=== PATIENT | female | born 1990 | race Caucasian/White ===

== ENCOUNTER 2016-05-10 13:22 | Emergency (ER) | payer BC ==
[2016-05-10 13:34] VITALS: BP 118/87
--- NOTE | 2016-05-10 14:29 | EDM.PDOC ---
ED HPI GI/ABDOMINAL - General Chief Complaint: Gastrointestinal Problem Stated Complaint: HEMROIDS Time Seen by Provider: 05/10/16 14:01 Source of Information: Reports: Patient History Limitations: Reports: No limitations - History of Present Illness INITIAL COMMENTS - FREE TEXT/NARRATIVE: Patient presents for evaluation treatment of hemorrhoids. Patient is approximately 35 weeks . She states that she's been having severe hemorrhoids for several weeks. She has seen her [facility] provider, Dr. Nathan. He is aware of this and has been following the hemorrhoids. Most recent visit with ob was yesterday. She states that she was referred to a surgeon for further management and care. She reports prior to me entering the room her [facility] office called and she has an appointment with surgery tomorrow. Patient states that the hemorrhoids or not any worse today than previous days she just cannot longer take the pain. She is currently been using Tucks wipes, stool softeners and cream but is not having any relief. She is also taking Tylenol as needed for pain relief. Patient reports that her last bowel movement was approximately 8 days ago. She reports bright red blood on the tissue paper. Patient is a . She is scheduled to be induced on 06-04. Denies any abdominal or pelvic pain. Denies any vaginal bleeding. Baby is active and is healthy. Patient reports that she did have hemorrhoids with her last . - Related Data Allergies/ADRs: Allergies Allergy/AdvReac Type Severity Reaction Status Date / Time venom-honey bee Allergy Airway Verified 05/10/16 13:34 [bee venom (honey bee)] Tightness Home Meds: Home Meds . [No Known Home Meds] 05/10/16 [History] Past Medical History Gastrointestinal History: Reports: Hemorrhoids Genitourinary History: Reports: Renal calculus - Past Surgical History HEENT Surgical History: Reports: LASIK Female Surgical History: Reports: Ureteral stent Social & Family History - Tobacco Use Smoking Status *Q: Former Smoker - Caffeine Use Caffeine Use: Reports: Coffee, Soda - Alcohol Use Days Per Week of Alcohol Use: 0 - Recreational Drug Use Recreational Drug Use: No ED ROS GENERAL - Review of Systems Review Of Systems: See Below GI/Abdominal: Reports: Constipation, Hematochezia, Other (hemorrhoids). Denies : Abdominal pain, Nausea, Vomiting : Reports: no symptoms, other (denies pelvis pain or vaginal bleeding) ED EXAM, GI/ABD - Physical Exam Exam: See Below Exam Limited By: No limitations General Appearance: alert, WD/WN, no apparent distress Respiratory/Chest: no respiratory distress, lungs clear, normal breath sounds Cardiovascular: normal peripheral pulses, regular rate, rhythm GI/Abdominal: normal bowel sounds, other (gravid uterus) Rectal (Female) Exam: Normal Exam, Hemorrhoids (1 large hemorrhoidal tag, 1 large thrombosed hemorrhoid) Neurological: alert, oriented, normal cognition Psychiatric: normal affect, normal mood Skin Exam: Warm, Dry, Normal color Course - Vital Signs Last Recorded V/S: Last Vital Signs Temp 36.4 C 05/10/16 13:31 Pulse 107 H 05/10/16 13:31 Resp 16 05/10/16 13:31 BP 118/87 05/10/16 13:31 Pulse Ox 97 05/10/16 13:31 - Orders/Labs/Meds Meds: Medications Discontinued Medications Generic Name Dose Route Start Last Admin Trade Name Hussain PRN Reason Stop Dose Admin Lidocaine HCl 10 ml 05/10/16 15:09 05/10/16 15:20 Xylocaine 2% Jelly MUCMEM 05/10/16 15:10 10 ml ONETIME ONE Administration - Re-Assessments/Exams Free Text/Narrative Re-Assessment/Exam: 05/10/16 15:29 I called over to Dr. Nathan's office and they confirm that she has an appointment with tomorrow at 11:15 AM. I spoke with nurse practitioner, Katalina Vieyra about options for her constipation. Does not recommend laxatives or enemas. Recommend Colace 2 tabs twice a day, MiraLax and fiber. I discussed this with the patient. We will give some lidocaine jelly for her hemorrhoids here in the ER and she may take the remainder of her home. She is to followup with surgery tomorrow as planned. Discharge instructions as documented. Departure - Departure Time of Disposition: 15:30 Disposition: Home, Self-Care 01 Condition: fair Clinical Impression: Hemorrhoids affecting or puerperium with complication Instructions: Hemorrhoids, [id number] Referrals: Tom Nathan MD [Primary Care Provider] - Forms: ED Department Discharge Additional Instructions: Continue with the topical cream as prescribed by Dr. Nathan. Continue with Sits bath. Appointment with Dr. Duong at [place] tomorrow at 11:15 for further management of hemorrhoids. 2 tabs of colace twice a day and Metamucel for soft, easily passable bowel movements. Drink plenty of fluid. Drink about half you body weight in fluids a day. OTC tylenol as needed for additional pain relief. May use the remainder of lidocaine tonight or tomorrow as needed. Rest. Please return to the ER should your symptoms change or worsen.
[2016-05-10] MEDS ORDERED: Lidocaine 2% Jelly 10 ML Urojet MUCMEM ONE (15:09)
== END 2016-05-10 15:45 | disposition home or self-care (01) ==
LOC: JD.ED 13:22
DX: O22.43 Hemorrhoids in pregnancy, third trimester (principal); Z3A.35 35 weeks gestation of pregnancy; Z87.891 Personal history of nicotine dependence; Z96.0 Presence of urogenital implants; Z91.030 Bee allergy status
CPT/HCPCS: 99283

== ENCOUNTER 2016-06-04 11:57 | Inpatient (IN) | payer BC ==
[2016-06-04] MEDS ORDERED: Ondansetron 4 MG/2 ML SDV IVPUSH PRN ×2 (15:50→16:50)
[2016-06-04] MEDS ORDERED: Sodium Chloride 0.9% 10 ML Syringe FLUSH PRN (15:50)
[2016-06-04] MEDS ORDERED: Nalbuphine 20 MG/1 ML Amp IVPUSH PRN (15:50)
[2016-06-04] MEDS ORDERED: Bupivacaine 0.25% 10 ML SDV ONE (16:00)
[2016-06-04] MEDS ORDERED: Oxytocin/Lactated Ringers 10 UNIT/1,000 ML BAG IV SCH ×2 (16:00)
[2016-06-04] MEDS: Lactated Ringers 1,000 ML IV SCH ×2 (16:22→17:35)
[2016-06-04] MEDS ORDERED: ePHEDrine 50 MG/ML SDV IVPUSH PRN (16:50)
[2016-06-04] MEDS ORDERED: fentaNYL 100 MCG/2 ML SDV IVPUSH PRN (16:50)
[2016-06-04] MEDS ORDERED: Bupivacaine/fentaNYL/NS 100 ML Bag EPIDUR SCH (17:00)
[2016-06-04] MEDS ORDERED: Lidocaine 1% 50 ML MDV INJECT ONE (18:00)
--- NOTE | 2016-06-04 18:42 | PCM.PREANE ---
Preanesthetic Assessment - Anesthesia/Transfusion/Family Hx Anesthesia History: Prior Anesthesia Without Reaction Transfusion History: No Prior Transfusion(s) - Physical Assessment O2 Sat by Pulse Oximetry: 96 Respiratory Rate: 16 Vital Signs: Last Vital Signs Temp 36.3 C 06/04/16 14:23 Pulse 86 06/04/16 14:23 Resp 16 06/04/16 14:23 BP 108/72 06/04/16 14:23 Pulse Ox 96 06/04/16 14:23 Height: 1.55 m Weight: 64.41 kg - Lab Values: Laboratory Last Values WBC 8.45 K/mm3 (3.98-10.04) 06/04/16 16: RBC 3.55 M/mm3 (3.98-5.22) L 06/04/16 16:26 Hgb 10.3 gm/L (11.2-15.7) L 06/04/16 16:26 Hct 31.5 % (34.1-44.9) L 06/04/16 16:26 MCV 88.7 fl (79.4-94.8) 06/04/16 16:26 MCH 29.0 pg (25.6-32.2) 06/04/16 16:26 MCHC 32.7 g/dl (32.2-35.5) 06/04/16 16:26 RDW Std Deviation 43.1 fL (36.4-46.3) 06/04/16 16:26 Plt Count 296 K/mm3 (182-369) 06/04/16 16:26 MPV 8.0 fl (9.4-12.3) L 06/04/16 16:26 Neut % (Auto) 60.9 % (34.0-71.1) 06/04/16 16:26 Lymph % (Auto) 29.5 % (19.3-51.7) 06/04/16 16:26 [place] % (Auto) 8.5 % (4.7-12.5) 06/04/16 16:26 Eos % (Auto) 0.5 (0.7-5.8) L 06/04/16 16:26 Baso % (Auto) 0.2 % (0.1-1.2) 06/04/16 16:26 Neut # (Auto) 5.15 K/mm3 (1.56-6.13) 06/04/16 16:26 Lymph # (Auto) 2.49 K/mm3 (1.18-3.74) 06/04/16 16:26 [place] # (Auto) 0.72 K/mm3 (0.24-0.36) H 06/04/16 16:26 Eos # (Auto) 0.04 K/mm3 (0.04-0.36) 06/04/16 16:26 Baso # (Auto) 0.02 K/mm3 (0.01-0.08) 06/04/16 16:26 - Allergies Allergies/Adverse Reactions: Allergies Allergy/AdvReac Type Severity Reaction Status Date / Time venom-honey bee Allergy Airway Verified 05/10/16 13:34 [bee venom (honey bee)] Tightness PreAnesthesia Questionnaire Gastrointestinal History: Reports: Hemorrhoids Genitourinary History: Reports: Renal calculus [employer] History: Reports: - Past Surgical History HEENT Surgical History: Reports: LASIK, Other (see below) Other HEENT Surgeries/Procedures: 2009 Female Surgical History: Reports: Ureteral stent - SUBSTANCE USE Smoking Status *Q: Former Smoker Days Per Week of Alcohol Use: 0 Recreational Drug Use History: No - HOME MEDS Home Medications: Home Meds . [No Known Home Meds] 05/10/16 [History] - CURRENT (IN HOUSE) MEDS Current Meds: Current Medications Ephedrine Sulfate (Ephedrine Sulfate) 5 mg IVPUSH ASDIRECTED PRN PRN Reason: Hypotension Fentanyl/Bupivacaine HCl (Fentanyl/Bupivacaine/Ns 2 Mcg-0.125% 100 Ml) 100 ml EPIDUR ASDIRECTED EMILY Lactated Ringer's (Ringers, Lactated) 1,000 mls @ 100 mls/hr IV ASDIRECTED EMILY Last Admin: 06/04/16 16:22 Dose: 100 mls/hr Oxytocin/Lactated Ringer's (Pitocin In Lr 10 Units/1,000 Ml) 10 unit in 1,000 mls @ 500 mls/hr IV TITRATE EMILY Oxytocin/Lactated Ringer's (Pitocin In Lr 10 Units/1,000 Ml) 10 unit in 1,000 mls @ 12 mls/hr IV TITRATE EMILY; 2 MUNITS/MIN PRN Reason: Protocol Last Titration: 06/04/16 17:30 Dose: 6 munits/min, 36 mls/hr Nalbuphine HCl (Nubain) 10 mg IVPUSH Q2H PRN PRN Reason: Pain (moderate 4-6) Ondansetron HCl (Zofran) 4 mg IVPUSH Q4H PRN PRN Reason: Nausea/Vomiting Ondansetron HCl (Zofran) 4 mg IVPUSH ONETIME PRN PRN Reason: Nausea/Vomiting Stop: 06/04/16 19:00 Sodium Chloride (Saline Flush) 10 ml FLUSH ASDIRECTED PRN PRN Reason: Keep Vein Open Discontinued Medications Fentanyl (Sublimaze) 50 mcg IVPUSH Q5M PRN PRN Reason: Pain Stop: 06/04/16 17:06 Lidocaine HCl (Xylocaine 1%) 50 ml INJECT ONETIME ONE Stop: 06/04/16 18:01 Preanesthetic Assessment - ANESTHESIA/TRANSFUSION/FAMILY HX Anesthesia/Transfusion History: No Prior Transfusion(s), Prior Anesthesia Type of Anesthesia Reaction: Denies: Allergy, Anesthesia Awareness, Excessive Somnolence, Excessive Nausea/Vomiting, Excessive Itching, Excessive Shivering, Malignant Hyperthermia, Malignant Hyperthermia, Family History, Pseudocholinesterase Deficiency, Pseudocholinesterase Deficiency, Family History of, Urinary Retention, Unknown, Other (see below) Family History of Anesthesia Reaction: No Intubation History: Unknown - REVIEW OF SYSTEMS Constitutional: Reports: no symptoms NEAR [employer]: Reports: no symptoms Respiratory: Reports: no symptoms Cardiovascular: Reports: no symptoms GI: Reports: no symptoms Other: Reports: None (kidney stones) - PHYSICAL ASSESSMENT HR: 86 O2 Sat by Pulse Oximetry: 96 RR: 16 BP: 108/72 Temp: 36.3 C Vital Signs: Last Vital Signs Temp 36.3 C 06/04/16 14:23 Pulse 86 06/04/16 14:23 Resp 16 06/04/16 14:23 BP 108/72 06/04/16 14:23 Pulse Ox 96 06/04/16 14:23 Height: 1.55 m Weight: 64.41 kg NPO Status Date: 06/04/16 NPO Status Time: 12:30 ASA Class: 2 Mental Status: Alert & Oriented x3 Airway Class: Mallampati = 2 Dentition: Reports: Normal Dentition, Caries Thyro-Mental Finger Breadths: 3 Mouth Opening Finger Breadths: 3 ROM/Head Extension: Full Respiratory Status: lungs clear to auscultation bilaterally Cardiovascular Status: regular rate & rhythm, normal S1, S2, no murmur, blood pressure WNL - LAB Values: Laboratory Last Values WBC 8.45 K/mm3 (3.98-10.04) 06/04/16 16:26 RBC 3.55 M/mm3 (3.98-5.22) L 06/04/16 16:26 Hgb 10.3 gm/L (11.2-15.7) L 06/04/16 16:26 Hct 31.5 % (34.1-44.9) L 06/04/16 16:26 MCV 88.7 fl (79.4-94.8) 06/04/16 16:26 MCH 29.0 pg (25.6-32.2) 06/04/16 16:26 MCHC 32.7 g/dl (32.2-35.5) 06/04/16 16:26 RDW Std Deviation 43.1 fL (36.4-46.3) 06/04/16 16:26 Plt Count 296 K/mm3 (182-369) 06/04/16 16:26 MPV 8.0 fl (9.4-12.3) L 06/04/16 16:26 Neut % (Auto) 60.9 % (34.0-71.1) 06/04/16 16:26 Lymph % (Auto) 29.5 % (19.3-51.7) 06/04/16 16:26 [place] % (Auto) 8.5 % (4.7-12.5) 06/04/16 16:26 Eos % (Auto) 0.5 (0.7-5.8) L 06/04/16 16:26 Baso % (Auto) 0.2 % (0.1-1.2) 06/04/16 16:26 Neut # (Auto) 5.15 K/mm3 (1.56-6.13) 06/04/16 16:26 Lymph # (Auto) 2.49 K/mm3 (1.18-3.74) 06/04/16 16:26 [place] # (Auto) 0.72 K/mm3 (0.24-0.36) H 06/04/16 16:26 Eos # (Auto) 0.04 K/mm3 (0.04-0.36) 06/04/16 16:26 Baso # (Auto) 0.02 K/mm3 (0.01-0.08) 06/04/16 16:26 Reviewed and noted. - ALLERGIES Allergies/Adverse Reactions: Allergies Allergy/AdvReac Type Severity Reaction Status Date / Time venom-honey bee Allergy Airway Verified 05/10/16 13:34 [bee venom (honey bee)] Tightness - ANESTHESIA PLAN Preop Beta Moriah: No Anesthesia Type Planned: Epidural - ACKNOWLEDGEMENTS Pt an Appropriate Candidate for the Planned Anesthesia: Yes Alternatives and Risks of Anesthesia Discussed w Pt/Guardian: Yes Pt/Guardian Understands and Agrees with Anesthesia Plan: Yes
--- NOTE | 2016-06-04 19:16 | PCM.LDHP ---
[id number] of Service: 06/04/16 Admit Problem/Dx: Patient Status Order with Admit Dx/Problem 06/04/16 15:50 Patient Status [ADT] Routine Patient Status: Refer to Observation Admission Diagnosis/Problem: Reason for Admit: Induction Nurse Unit Type: Labor and Delivery Admitting Physician: Tom Nathan Attending Physician: Tom Nathan Medicare 96 Hour Certification Statement: This Patient is Admitted for Inpatient Services and is Medically Appropriate and Meets Medical Necessity for Inpatient Admission. I Reasonably Expect the Patient Will Require Inpatient Services That Span a Period of Time Over 2 Midnights. My Rationale for Medically Necessary Inpatient Care Will Be Found in the Admission History & Physical and Progress Notes. I Reasonably Expect the Patient to be Discharged or Transferred Within 96 Hours After Admission to This [facility]. Admission Diagnosis/Problem Admission Diagnosis/Problem 06/04/16 18:46 Intrauterine at 39-2/7 weeks gestation presenting for induction of labor. Source of Information: Patient History Limitations: Reports: No limitations - History of Present Illness Introduction:: History of Present Illness: Zuleima is a 26-year-old 3 para 2-0-0-2 female who presents to labor & delivery for induction of labor. Patient reports good movement and minimal contractions. She denies having pain. NILSON is 06/09/16 based on definite LMP on 09/03/15. Early ultrasound completed on 11/16/15 estimated NILSON of . She was not on control at the time of conception. The patient has received routine care. was complicated by hemorrhoids and constipation, which were treated symptomatically with Proctosol HC 2.5% rectal cream and Colase 100mg, respectively. She also had an abnormal pap result which was positive for LGSIL with HR-HPV. Colposcopy was done and showed normal cervix with exception of HPV on cervix as well as in the vagina. Patient reports lesions have decreased since diagnosis. weight has been measured consistently small throughout . Tdap was given. [employer] History: -0-0-2. The patient had two full-term spontaneous vaginal deliveries, without complication, prior to this . History of menses occurring approximately every 30 days with menarche at age 12. Recent history of HPV, otherwise no history of other STIs. Patient is blood type A positive, antibody negative. Rubella immune, VDRL/RPR nonreactive. HBsAg negative. HIV, chlamydia, and gonorrhea also negative. GBS negative. Patient plans to bottle feed. Medications: - Proctosol HC 2.5% Rectal cream - Colase 100mg, PO, 2 capsules BID Allergies: No known drug allergies; Bee stings - anaphylaxis, shortness of breath Past Medical History: Pertinent for kidney stones Past Surgical History: - Lasix eye surgery - Stent - Dental surgery Family History: - Mother: hypertension, heart disease, depression; history of stillbirth - Father: Unknown. - 2 brothers: alive and well - MGM: alive with dementia - MGF: heart disease Social History: The patient lives in [place] with her and two children. 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 She has smoked 1/2 pack cigarettes per day for approximately three years. Denies alcohol and illicit drug use. Review of Systems: General: No significant malaise, fatigue, weight changes other than symptoms. HEENT: No headaches, blurry vision, dizziness. No rhinorrhea. No sore throat. Cardiovascular: No chest pain or palpitations. Respiratory: No shortness of breath, coughing, or wheezing. GI: Constipation throughout . See HPI. : changes only. Musculoskeletal: Mild, intermittent swelling. No muscular aches or pains. Physical Exam: General: he patient is a well-nourished, pleasant female in increasing amounts of pain, due to contractions. Vitals: BP 108/72. Weight 143lbs on last evaluation on 05/29/16. Weight 142lbs today. heart rate 138 with good variability. Skin: Skin is warm, supple, and without lesions or bruising. Cardiovascular: Regular rate and rhythm. No murmur appreciated. Respiratory: Clear breath sounds bilaterally. Breast exam: Deferred. Abdominal: Gravid uterus with intermittent tightening. Fundal height consistent with full-term . Cervical exam: 2/80%/-2/soft/mid Extremities and Neurological: Grossly within normal limits. - Related Data Allergies/Adverse Reactions: Allergies Allergy/AdvReac Type Severity Reaction Status Date / Time venom-honey bee Allergy Airway Verified 06/04/16 19:40 [bee venom (honey bee)] Tightness Home Medications: Home Meds . [No Known Home Meds] 05/10/16 [History] Past Medical History Gastrointestinal History: Reports: Hemorrhoids Genitourinary History: Reports: Renal calculus [employer] History: Reports: - Past Surgical History HEENT Surgical History: Reports: ALEXSANDRA, Other (see below) Other HEENT Surgeries/Procedures: 2010 Female Surgical History: Reports: Ureteral stent Social & Family History - Family History Family Medical History: Noncontributory - Tobacco Use Smoking Status *Q: Former Smoker Used Tobacco, but Quit: Yes Month Tobacco Last Used: December - Caffeine Use Caffeine Use: Reports: Coffee, Soda - Alcohol Use Days Per Week of Alcohol Use: 0 - Recreational Drug Use Recreational Drug Use: No H&P Review of Systems - Review of Systems: Review Of Systems: See Below L&D Exam - Exam Exam: See Below - Vital Signs Vital Signs: Last Vital Signs Temp 36.3 C 06/04/16 18:42 Pulse 86 06/04/16 18:42 Resp 16 06/04/16 18:42 BP 108/72 06/04/16 18:42 Pulse Ox 96 06/04/16 18:42 Weight: 64.41 kg - Patient Data Lab Results last 24 hrs: Laboratory Results - last 24 hr 06/04/16 Range/Units 16:26 WBC 8.45 (3.98-10.04) K/mm3 RBC 3.55 L (3.98-5.22) M/mm3 Hgb 10.3 L (11.2-15.7) gm/L Hct 31.5 L (34.1-44.9) % MCV 88.7 (79.4-94.8) fl MCH 29.0 (25.6-32.2) pg MCHC 32.7 (32.2-35.5) g/dl RDW Std Deviation 43.1 (36.4-46.3) fL Plt Count 296 (182-369) K/mm3 MPV 8.0 L (9.4-12.3) fl Neut % (Auto) 60.9 (34.0-71.1) % Lymph % (Auto) 29.5 (19.3-51.7) % [place] % (Auto) 8.5 (4.7-12.5) % Eos % (Auto) 0.5 L (0.7-5.8) Baso % (Auto) 0.2 (0.1-1.2) % Neut # (Auto) 5.15 (1.56-6.13) K/mm3 Lymph # (Auto) 2.49 (1.18-3.74) K/mm3 [place] # (Auto) 0.72 H (0.24-0.36) K/mm3 Eos # (Auto) 0.04 (0.04-0.36) K/mm3 Baso # (Auto) 0.02 (0.01-0.08) K/mm3 Result Diagrams: 06/04/16 16:26 Orders Last 24hrs: Active Orders 24 hr Category Date Time Status Patient Status [ADT] Routine ADT 06/04/16 15:50 Active Activity as Tolerated [RC] PFP Care 06/04/16 15:50 Active Communication Order [RC] ASDIRECTED Care 06/04/16 15:50 Active Heart Tones [RC] ASDIRECTED Care 06/04/16 15:50 Active Notify Provider [RC] ASDIRECTED Care 06/04/16 16:50 Active Notify Provider [RC] PFP Care 06/04/16 15:50 Active Notify Provider [RC] PRN Care 06/04/16 15:50 Active Oxygen Therapy [RC] ASDIRECTED Care 06/04/16 16:49 Active Peripheral IV Care [RC] . DIRECTED Care 06/04/16 15:50 Active Pulse Oximetry [RC] ASDIRECTED Care 06/04/16 16:49 Active Vital Signs [RC] PER UNIT ROUTINE Care 06/04/16 15:50 Active Clear Liquid Diet [DIET] Diet 06/04/16 Lunch Active Bupivacaine/fentaNYL/NS [fentaNYL/Bupivacaine/NS 2 MCG- Med 06/04/16 17:00 Active 0.125% 100 ML] 100 ml EPIDUR ASDIRECTED Lactated Ringers [Ringers, Lactated] 1,000 ml Med 06/04/16 16:00 Active IV ASDIRECTED Nalbuphine [Nubain] Med 06/04/16 15:50 Active 10 mg IVPUSH Q2H PRN Ondansetron [Zofran] Med 06/04/16 16:50 Active 4 mg IVPUSH ONETIME PRN Ondansetron [Zofran] Med 06/04/16 15:50 Active 4 mg IVPUSH Q4H PRN Oxytocin/Lactated Ringers [Pitocin in LR 10 Units/1,000 Med 06/04/16 16:00 Active ML] 10 unit in 1,000 ml IV TITRATE Oxytocin/Lactated Ringers [Pitocin in LR 10 Units/1,000 Med 06/04/16 16:00 Active ML] 10 unit in 1,000 ml IV TITRATE Sodium Chloride 0.9% [Saline Flush] Med 06/04/16 15:50 Active 10 ml FLUSH ASDIRECTED PRN ePHEDrine [ePHEDrine Sulfate] Med 06/04/16 16:50 Active 5 mg IVPUSH ASDIRECTED PRN Electronic Heart Tones Ext w TOCO [WOMSER] Oth 06/04/16 15:50 Ordered Routine Electronic Heart Tones Internal [WOMSER] Per Unit Ot 06/04/16 15:50 Ordered Routine Peripheral IV Insertion Adult [OM.PC] Routine Ot 06/04/16 15:50 Ordered Resuscitation Status Routine Resus Stat 06/04/16 15:50 Ordered Medication Orders Ephedrine Sulfate (Ephedrine Sulfate) 5 mg IVPUSH ASDIRECTED PRN PRN Reason: Hypotension Fentanyl/Bupivacaine HCl (Fentanyl/Bupivacaine/Ns 2 Mcg-0.125% 100 Ml) 100 ml EPIDUR ASDIRECTED EMILY Lactated Ringer's (Ringers, Lactated) 1,000 mls @ 100 mls/hr IV ASDIRECTED EMILY Last Admin: 06/04/16 16:22 Dose: 100 mls/hr Oxytocin/Lactated Ringer's (Pitocin In Lr 10 Units/1,000 Ml) 10 unit in 1,000 mls @ 500 mls/hr IV TITRATE EMILY Oxytocin/Lactated Ringer's (Pitocin In Lr 10 Units/1,000 Ml) 10 unit in 1,000 mls @ 12 mls/hr IV TITRATE EMILY; 2 MUNITS/MIN PRN Reason: Protocol Last Titration: 06/04/16 17:30 Dose: 6 munits/min, 36 mls/hr Titration: 06/04/16 16:46 Dose: 4 munits/min, 24 mls/hr Admin: 06/04/16 16:22 Dose: 2 munits/min, 12 mls/hr Nalbuphine HCl (Nubain) 10 mg IVPUSH Q2H PRN PRN Reason: Pain (moderate 4-6) Ondansetron HCl (Zofran) 4 mg IVPUSH Q4H PRN PRN Reason: Nausea/Vomiting Ondansetron HCl (Zofran) 4 mg IVPUSH ONETIME PRN PRN Reason: Nausea/Vomiting Stop: 06/04/16 19:00 Sodium Chloride (Saline Flush) 10 ml FLUSH ASDIRECTED PRN PRN Reason: Keep Vein Open Assessment/Plan Comment:: Assessment: 1. Intrauterine at 39-2/7 weeks gestation presenting for Induction of Labor. 2. Group B Strep negative. 3. History of HPV lesions on vagina and cervix. 4. Plans a natural labor but is open to epidural. 5. Plans to bottle feed. 6. Tdap up-to-date. Plan: 1. IV Pitocin if no significant contractions develop in the next 2-3 hours. 2. Artificial rupture of membranes once patient is settled in room. 3. Epidural if desired. 4. Anticipate normal spontaneous vaginal delivery. <Tom Nathan - Last Filed: 06/05/16 05:59> L&D History of Present Illness - General Date of Service: 06/04/16 Admit Problem/Dx: Admission Diagnosis/Problem Admission Diagnosis/Problem Source of Information: Patient History Limitations: Reports: No limitations H&P Review of Systems - Review of Systems: Review Of Systems: See Below L&D Exam - Exam Exam: See Below - Vital Signs Vital Signs: Last Vital Signs Temp 36.8 C 06/04/16 21:00 Pulse 66 06/04/16 21:00 Resp 15 06/04/16 21:00 BP 122/77 06/04/16 21:00 Pulse Ox 100 06/04/16 21:00 - Patient Data Lab Results last 24 hrs: Laboratory Results - last 24 hr 06/04/16 Range/Units 16:26 WBC 8.45 (3.98-10.04) K/mm3 RBC 3.55 L (3.98-5.22) M/mm3 Hgb 10.3 L (11.2-15.7) gm/L Hct 31.5 L (34.1-44.9) % MCV 88.7 (79.4-94.8) fl MCH 29.0 (25.6-32.2) pg MCHC 32.7 (32.2-35.5) g/dl RDW Std Deviation 43.1 (36.4-46.3) fL Plt Count 296 (182-369) K/mm3 MPV 8.0 L (9.4-12.3) fl Neut % (Auto) 60.9 (34.0-71.1) % Lymph % (Auto) 29.5 (19.3-51.7) % [place] % (Auto) 8.5 (4.7-12.5) % Eos % (Auto) 0.5 L (0.7-5.8) Baso % (Auto) 0.2 (0.1-1.2) % Neut # (Auto) 5.15 (1.56-6.13) K/mm3 Lymph # (Auto) 2.49 (1.18-3.74) K/mm3 [place] # (Auto) 0.72 H (0.24-0.36) K/mm3 Eos # (Auto) 0.04 (0.04-0.36) K/mm3 Baso # (Auto) 0.02 (0.01-0.08) K/mm3 Result Diagrams: 06/04/16 16:26 Problem List Initiated/Reviewed/Updated: Yes Orders Last 24hrs: Active Orders 24 hr Category Date Time Status Activity as Tolerated [RC] PER UNIT ROUTINE Care 06/04/16 21:04 Active Vital Signs [RC] 04,12,20 Care 06/04/16 15:50 Inactive Vital Signs [RC] 04,12,20 Care 06/04/16 21:04 Active Regular Diet [DIET] Diet 06/04/16 Dinner Active CBC W/O DIFF,HEMOGRAM [HEME] Routine Lab 06/05/16 20:56 Ordered Acetaminophen [Tylenol] Med 06/04/16 21:04 Active 650 mg PO Q4H PRN Benzocaine/Menthol [Dermoplast Pain Relief [place]] Med 06/04/16 21:04 Active See Dose Instructions TOP ASDIRECTED PRN Docusate Sodium [Colace] Med 06/04/16 21:04 Active 100 mg PO BID PRN Ibuprofen [Motrin] Med 06/04/16 21:04 Active 600 mg PO Q4H PRN Lanolin [Lansinoh HPA] Med 06/04/16 21:04 Active See Dose Instructions TOP ASDIRECTED PRN Vit with Ca/FA/Iron [ Plus Iron] Med 06/05/16 09:00 Active 1 each PO DAILY Witch Cyndie [Tucks] Med 06/04/16 21:04 Active 1 pad TOP ASDIRECTED PRN Assess Lochia [WOMSER] Per Unit Routine Ot 06/04/16 21:04 Ordered Assess Uterine Involution [WOMSER] Per Unit Routine Oth 06/04/16 21:04 Ordered Breast Pump [WOMSER] Per Unit Routine Oth 06/04/16 21:04 Ordered Heat Therapy [OM.PC] PRN Oth 06/04/16 21:04 Ordered Heat Therapy [OM.PC] PRN Ot 06/05/16 21:04 Ordered Ice Therapy [OM.PC] Per Unit Routine Ot 06/04/16 21:04 Ordered Medication Administration Instruction [OM.PC] Routine Ot 06/04/16 21:04 Ordered Perineal Care [OM.PC] Per Unit Routine Ot 06/04/16 21:04 Ordered Sitz Bath [OM.PC] Per Unit Routine Ot 06/04/16 21:04 Ordered Resuscitation Status Routine Resus Stat 06/04/16 15:50 Ordered Medication Orders Acetaminophen (Tylenol) 650 mg PO Q4H PRN PRN Reason: mild pain or fever Benzocaine/Menthol (Dermoplast Pain Relief [place]) 0 gm TOP ASDIRECTED PRN PRN Reason: Perineal Comfort Measure Last Admin: 06/04/16 21:13 Dose: 56 gm Docusate Sodium (Colace) 100 mg PO BID PRN PRN Reason: Constipation Emollient Ointment (Lansinoh Hpa) 0 gm TOP ASDIRECTED PRN PRN Reason: Sore Nipples Ibuprofen (Motrin) 600 mg PO Q4H PRN PRN Reason: Mild pain or fever Prenat Multivit/[place]/Iron/Folic Ac ( Plus Iron) 1 each PO DAILY EMILY Manuel Agee (Tucks) 1 pad TOP ASDIRECTED PRN PRN Reason: Hemorrhoid pain Last Admin: 06/04/16 21:12 Dose: 100 pad
--- NOTE | 2016-06-04 20:42 | PCM.SN ---
- Free Text/Narrative Note: Zuleima is a 26-year-old 3 now para 3 female who was admitted for induction of labor. She was having mild contractions until artificial rupture of membranes was performed. She rapidly progressed to complete cervical dilation approximately one hour later. She pushed for two contractions and delivered a viable, more, 2780 g (6 pounds 2 ounce) female infant, 18.5 inches in length over an intact perineum in a direct OA position at 1917 hours. Apgars were 8 and 9 at one and five minutes, respectively. The baby was placed on mom's abdomen. The cord was noted to have three vessels. It was clamped x2 and cut by the father. Cord blood was obtained. The placenta delivered intact at 1923 in Chou presentation. It appeared complete, without lacerations. Pitocin was started IV to facilitate uterine tone once the baby was delivered. Estimated blood loss was 100 cc. There was nuchal cord x1, which was snug, and was reduced over the baby's body as the baby delivered. The patient plans to bottle feed.
[2016-06-04] MEDS ORDERED: Acetaminophen 325 MG Tab PO PRN (21:04)
[2016-06-04] MEDS ORDERED: Docusate Sodium 100 MG Cap PO PRN (21:04)
[2016-06-04] MEDS ORDERED: Witch Hazel Medicated Pads 100/Jar TOP PRN (21:04)
[2016-06-04] MEDS ORDERED: Benzocaine/Menthol 20%-0.5% Spray 56 GM Canister TOP PRN (21:04)
[2016-06-04] MEDS ORDERED: Lanolin 100% Cream 7 GM Tube TOP PRN (21:04)
[2016-06-05] MEDS: Ibuprofen 600 MG Tab PO PRN ×3 (06:19→18:31)
[2016-06-05] MEDS ORDERED: Prenatal Multivitamin with Calcium/Folic Acid/Iron Tab PO SCH (09:00)
--- NOTE | 2016-06-05 09:20 | PCM48HPAN ---
Post Anesthesia Note - EVALUATION WITHIN 48HRS OF ANESTHETIC Vital Signs in Normal Range: Yes Patient Participated in Evaluation: Yes Respiratory Function Stable: Yes Airway Patent: Yes Cardiovascular Function Stable: Yes Hydration Status Stable: Yes Pain Control Satisfactory: Yes Nausea and Vomiting Control Satisfactory: Yes Mental Status Recovered: Yes - COMMENTS/OBSERVATIONS Free Text/Narrative:: Pt and baby doing well. denies headache, fever/chills, nausea/vomiting. Reports return of normal strength and sensation in bilateral lower extremities. walking up to restroom and eating/drinking without problems. Pt happy with epidural.
[2016-06-05 12:27] VITALS: BP 110/71
--- NOTE | 2016-06-05 12:51 | PCM.SN ---
- Free Text/Narrative Note: Subjective: Zuleima reports she is doing well today and would like to go home efraín. She is able to eat, drink, urinate, and is up and walking around in her room. Lochia has decreased from yesterday and she is having minimal pain. She is bottle feeding the baby. Objective: Vital signs are stable - no tachycardia, afebrile. Uterus is at the umbilicus. There is minimal swelling in her legs, bilaterally. labs: Hemoglobin 10.1, hematocrit 31.3%, WBCs 10.45. Assessment: 1. day 1. 2. Bottle Feeding. Plan: 1. Discharge this evening, at least 24 hours after delivery and when baby is ready. 2. Follow-up in clinic with Dr. Nathan in 6 weeks time. Call if any concerns or questions.
--- NOTE | 2016-06-05 19:06 | PCM.DCSUM1 ---
Discharge Summary - Hospital Course Free Text/Narrative:: Zuleima is a 26-year-old 3 now para 3 female who was admitted for induction of labor. She was having mild contractions until artificial rupture of membranes was performed. She rapidly progressed to complete cervical dilation approximately one hour later. She pushed for two contractions and delivered a viable, more, 2780 g (6 pounds 2 ounce) female infant, 18.5 inches in length over an intact perineum in a direct OA position at 1917 hours. Apgars were 8 and 9 at one and five minutes, respectively. The baby was placed on mom's abdomen. The cord was noted to have three vessels. It was clamped x2 and cut by the father. Cord blood was obtained. The placenta delivered intact at 1923 in Chou presentation. It appeared complete, without lacerations. Pitocin was started IV to facilitate uterine tone once the baby was delivered. Estimated blood loss was 100 cc. There was nuchal cord x1, which was snug, and was reduced over the baby's body as the baby delivered. The patient plans to bottle feed. Postoperative patient was done well. She is recovered nicely. Her hemoglobin is okay. She wishes to go home. - Discharge Data Discharge Date: 06/05/16 Discharge Disposition: DC/Tfer W/I Hosp To Swing 61 Condition: Good - Patient Instructions Diet: Regular Diet as Tolerated Activity: As Tolerated (No intercourse or tampons until bleeding resolves) Driving: May Drive Today Showering/Bathing: May Shower (May take a bath) Notify Provider of: Fever, Increased Pain, Swelling and Redness, Nausea and/or Vomiting - Discharge Plan Home Medications: Home Meds Ibuprofen [IJD: Ibuprofen] 600 mg PO Q4H PRN #30 tablet 06/05/16 [Rx] Vit with Ca/FA/Iron [ Plus Iron] 1 each PO DAILY tablet [Rx] Patient Handouts: Smoking Cessation, Tips for Success, [id number], Smoking Hazards Referrals: Tom Nathan MD [Physician] - (Return to clinic-Dr. Nathan-6 weeks-[facility] for evaluation and colposcopy.) - Discharge Summary/Plan Comment DC Time >30 min.: No Discharge Summary/Plan Comment: Discharge instructions: 1. Discharge hematocrit 2. Regular, high-fiber, diet. 3. precautions given concern increased pain, bleeding, temperature, signs/ symptoms of DVT/PE. 4. Medications per medication was printed come discuss with him given to the patient verified. 5. Return clinic-Dr. Nathan-6 weeks-[facility] for evaluation and colposcopy. Diagnosis: 39 week intrauterine , delivered Condition: Good - Patient Data Vitals - Most Recent: Last Vital Signs Temp 36.4 C 06/05/16 11:05 Pulse 67 06/05/16 11:05 Resp 16 06/05/16 11:05 BP 110/71 06/05/16 11:05 Pulse Ox 98 06/05/16 11:05 Weight - Most Recent: 64.41 kg I&O - Last 24 hours: Intake & Output 06/05/16 06/05/16 06/05/16 06:59 14:59 22:59 Intake Total 150 Balance 150 Lab Results - Last 24 hrs: Laboratory Results - last 24 hr 06/05/16 Range/Units 06:04 WBC 10.45 H (3.98-10.04) K/mm3 RBC 3.50 L (3.98-5.22) M/mm3 Hgb 10.1 L (11.2-15.7) gm/L Hct 31.3 L (34.1-44.9) % MCV 89.4 (79.4-94.8) fl MCH 28.9 (25.6-32.2) pg MCHC 32.3 (32.2-35.5) g/dl RDW Std Deviation 43.2 (36.4-46.3) fL Plt Count 259 (182-369) K/mm3 MPV 8.2 L (9.4-12.3) fl Med Orders - Current: Current Medications Acetaminophen (Tylenol) 650 mg PO Q4H PRN PRN Reason: mild pain or fever Benzocaine/Menthol (Dermoplast Pain Relief [place]) 0 gm TOP ASDIRECTED PRN PRN Reason: Perineal Comfort Measure Last Admin: 06/04/16 21:13 Dose: 56 gm Docusate Sodium (Colace) 100 mg PO BID PRN PRN Reason: Constipation Last Admin: 06/05/16 11:02 Dose: 100 mg Emollient Ointment (Lansinoh Hpa) 0 gm TOP ASDIRECTED PRN PRN Reason: Sore Nipples Ibuprofen (Motrin) 600 mg PO Q4H PRN PRN Reason: Mild pain or fever Last Admin: 06/05/16 18:31 Dose: 600 mg Prenat Multivit/[place]/Iron/Folic Ac ( Plus Iron) 1 each PO DAILY EMILY Last Admin: 06/05/16 11:02 Dose: 1 each Witch Cyndie (Tucks) 1 pad TOP ASDIRECTED PRN PRN Reason: Hemorrhoid pain Last Admin: 06/04/16 21:12 Dose: 100 pad Discontinued Medications Bupivacaine HCl (Sensorcaine-Mpf 0.25%) 10 ml .ROUTE .STK-MED ONE Stop: 06/04/16 16:01 Ephedrine Sulfate (Ephedrine Sulfate) 5 mg IVPUSH ASDIRECTED PRN PRN Reason: Hypotension Fentanyl (Sublimaze) 50 mcg IVPUSH Q5M PRN PRN Reason: Pain Stop: 06/04/16 17:06 Last Admin: 06/04/16 18:45 Dose: 100 mcg Fentanyl/Bupivacaine HCl (Fentanyl/Bupivacaine/Ns 2 Mcg-0.125% 100 Ml) 100 ml EPIDUR ASDIRECTED EMILY Last Admin: 06/04/16 18:45 Dose: 100 ml Lactated Ringer's (Ringers, Lactated) 1,000 mls @ 100 mls/hr IV ASDIRECTED EMILY Last Admin: 06/04/16 17:35 Dose: 999 mls/hr Oxytocin/Lactated Ringer's (Pitocin In Lr 10 Units/1,000 Ml) 10 unit in 1,000 mls @ 500 mls/hr IV TITRATE EMILY Last Admin: 06/04/16 19:21 Dose: 500 mls/hr Oxytocin/Lactated Ringer's (Pitocin In Lr 10 Units/1,000 Ml) 10 unit in 1,000 mls @ 12 mls/hr IV TITRATE EMILY; 2 MUNITS/MIN PRN Reason: Protocol Last Titration: 06/04/16 17:30 Dose: 6 munits/min, 36 mls/hr Lidocaine HCl (Xylocaine 1%) 50 ml INJECT ONETIME ONE Stop: 06/04/16 18:01 Last Admin: 06/04/16 20:59 Dose: Not Given Nalbuphine HCl (Nubain) 10 mg IVPUSH Q2H PRN PRN Reason: Pain (moderate 4-6) Ondansetron HCl (Zofran) 4 mg IVPUSH Q4H PRN PRN Reason: Nausea/Vomiting Ondansetron HCl (Zofran) 4 mg IVPUSH ONETIME PRN PRN Reason: Nausea/Vomiting Stop: 06/04/16 19:00 Sodium Chloride (Saline Flush) 10 ml FLUSH ASDIRECTED PRN PRN Reason: Keep Vein Open *Q Meaningful Use (DIS) - VTE *Q VTE Criteria *Q: - Stroke *Q Stroke Criteria *Q: - AMI *Q AMI Criteria *Q:
== END 2016-06-05 19:42 | disposition home or self-care (01) | DRG 560 ==
LOC: JD.OB 13:56 → OBSVTOIN 19:17 → JD.OB 19:17
PROVIDERS: ADMIT Obstetrics & Gynecology; ATTEND Obstetrics & Gynecology
PROC: 10E0XZZ Delivery of Products of Conception, External Approach (ICD-10-PCS; principal; 2016-06-04)
PROC: 10907ZC Drainage of Amniotic Fluid, Therapeutic from Products of Conception, Via Natural or Artificial Opening (ICD-10-PCS; 2016-06-04)
PROC: 00HU33Z Insertion of Infusion Device into Spinal Canal, Percutaneous Approach (ICD-10-PCS; 2016-06-04)
PROC: 3E0R3CZ (ICD-10-PCS; 2016-06-04)
DX: O80 Encounter for full-term uncomplicated delivery (principal); Z3A.39 39 weeks gestation of pregnancy; Z37.0 Single live birth; Z87.891 Personal history of nicotine dependence; Z91.030 Bee allergy status
CPT/HCPCS: 01967; 36415; 85025; 85027; A9270-GY; J2590; J3010; J7120

== ENCOUNTER 2016-09-07 07:53 | Day surgery (SDC) | payer BC ==
[~2016-09-07 07:53] MED LIST: Lactated Ringers 1,000 ML IV SCH; Lidocaine 1% 4 ML ONE; Lidocaine 1%/Sod Bicarbonate in NS 8.4% 1 ML Syringe PRN; Midazolam 1 MG/ML 2 ML SDV ONE; Ondansetron 4 MG/2 ML SDV ONE; Propofol 200 MG/20 ML SDV ONE; Sodium Chloride 0.9% 10 ML Syringe FLUSH PRN; ceFAZolin 1 GM Vial ONE; fentaNYL 250 MCG/5 ML SDV ONE
[2016-09-07] MEDS ORDERED: Lidocaine 1% with EPINEPHrine 1:100,000 20 ML MDV ONE (08:05)
[2016-09-07] MEDS ORDERED: Sodium Chloride 0.9% 50 ML SDV ONE (08:05)
--- NOTE | 2016-09-07 08:22 | PCM.PREANE ---
Preanesthetic Assessment - Anesthesia/Transfusion/Family Hx Anesthesia History: Prior Anesthesia Without Reaction Family History of Anesthesia Reaction: No Transfusion History: No Prior Transfusion(s) - Review of Systems General: No Symptoms, Fatigue (3 kids) Pulmonary: No Symptoms Cardiovascular: No Symptoms, Chest Pain (chest feels heavy and she thinks it is because she just quit smoking this week) Gastrointestinal: No symptoms, Other (menstrual cramps this week) Neurological: No Symptoms Other: Reports: None - Physical Assessment NPO Status Date: 09/06/16 NPO Status Time: 22:00 Pulse: 65 O2 Sat by Pulse Oximetry: 99 Respiratory Rate: 16 Blood Pressure: 111/73 Temperature: 97.1 F Height: 5 ft 1 in Weight: 64.41 kg ASA Class: 1 Mental Status: Alert & Oriented x3 Airway Class: Mallampati = 1 Dentition: Reports: Normal Dentition Thyro-Mental Finger Breadths: 3 Mouth Opening Finger Breadths: 3 ROM/Head Extension: Full Lungs: Clear to auscultation, Normal respiratory effort Cardiovascular: Regular Rate, Regular Rhythm - Lab Values: Laboratory Last Values WBC 5.13 K/mm3 (3.98-10.04) 09/06/16 09:12 RBC 4.94 M/mm3 (3.98-5.22) 09/06/16 09:12 Hgb 14.4 gm/L (11.2-15.7) 09/06/16 09:12 Hct 43.1 % (34.1-44.9) 09/06/16 09:12 MCV 87.2 fl (79.4-94.8) 09/06/16 09:12 MCH 29.1 pg (25.6-32.2) 09/06/16 09:12 MCHC 33.4 g/dl (32.2-35.5) 09/06/16 09:12 RDW Std Deviation 44.7 fL (36.4-46.3) 09/06/16 09:12 Plt Count 320 K/mm3 (182-369) 09/06/16 09:12 MPV 8.7 fl (9.4-12.3) L 09/06/16 09:12 Neut % (Auto) 31.6 % (34.0-71.1) L 09/06/16 09:12 Lymph % (Auto) 55.9 % (19.3-51.7) H 09/06/16 09:12 [place] % (Auto) 10.3 % (4.7-12.5) 09/06/16 09:12 Eos % (Auto) 1.2 (0.7-5.8) 09/06/16 09:12 Baso % (Auto) 0.8 % (0.1-1.2) 09/06/16 09:12 Neut # (Auto) 1.62 K/mm3 (1.56-6.13) 09/06/16 09:12 Lymph # (Auto) 2.87 K/mm3 (1.18-3.74) 09/06/16 09:12 [place] # (Auto) 0.53 K/mm3 (0.24-0.36) H 09/06/16 09:12 Eos # (Auto) 0.06 K/mm3 (0.04-0.36) 09/06/16 09:12 Baso # (Auto) 0.04 K/mm3 (0.01-0.08) 09/06/16 09:12 Urine Color Light yellow (Yellow) 09/06/16 09:12 Urine Appearance Clear (Clear) 09/06/16 09:12 Urine pH 7.0 (5.0-8.0) 09/06/16 09:12 Ur Specific [place] 1.015 (1.005-1.030) 09/06/16 09:12 Urine Protein Negative (Negative) 09/06/16 09:12 Urine Glucose (UA) Negative (Negative) 09/06/16 09:12 Urine Ketones Negative (Negative) 09/06/16 09:12 Urine Occult Blood 3+ (Negative) H 09/06/16 09:12 Urine Nitrite Negative (Negative) 09/06/16 09:12 Urine Bilirubin Negative (Negative) 09/06/16 09:12 Urine Urobilinogen 0.2 (0.2-1.0) 09/06/16 09:12 Ur Leukocyte Esterase Negative (Negative) 09/06/16 09:12 Urine HCG, Qual Negative (NEGATIVE) 09/06/16 09:12 - Allergies Allergies/Adverse Reactions: Allergies Allergy/AdvReac Type Severity Reaction Status Date / Time venom-honey bee Allergy Airway Verified 09/06/16 16:30 [bee venom (honey bee)] Tightness - Blood Blood Available: No - Acknowledgements Anesthesia Type Planned: General Anesthesia Pt an Appropriate Candidate for the Planned Anesthesia: Yes Alternatives and Risks of Anesthesia Discussed w Pt/Guardian: Yes Pt/Guardian Understands and Agrees with Anesthesia Plan: Yes PreAnesthesia Questionnaire Cardiovascular History: Reports: None Respiratory History: Reports: None Gastrointestinal History: Reports: Hemorrhoids Genitourinary History: Reports: Renal Calculus 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: , 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) Other OB/BYN History: colposcopy Musculoskeletal History: Reports: None Neurological History: Reports: None Psychiatric History: Reports: None Endocrine/Metabolic History: Reports: None Hematologic History: Reports: None Immunologic History: Reports: None Oncologic (Cancer) History: Reports: None Dermatologic History: Reports: 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) Other Dermatologic History: acne,vesicular rash - Past Surgical History Head Surgeries/Procedures: Reports: None HEENT Surgical History: Reports: LASIK, Oral Surgery, 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) Other HEENT Surgeries/Procedures: 2009 Respiratory Surgical History: Reports: None Female Surgical History: Reports: Ureteral Stent - SUBSTANCE USE Smoking Status *Q: Former Smoker (quit this week) Tobacco Use Within Last Twelve Months: Cigarettes Second Hand Smoke Exposure: Yes Days Per Week of Alcohol Use: 0 (seldom) Recreational Drug Use History: No - HOME MEDS Home Medications: Home Meds medroxyPROGESTERone Acetate [Depo-Provera] 1 dose IM ASDIRECTED 09/06/16 [ History] - CURRENT (IN HOUSE) MEDS Current Meds: Current Medications Lactated Ringer's (Ringers, Lactated) 1,000 mls @ 125 mls/hr IV ASDIRECTED EMILY Stop: 09/07/16 23:00 Lidocaine/Sodium Bicarbonate (Buffered Lidocaine 1% In Ns 8.4%) 0.25 ml .XX ONETIME PRN PRN Reason: Prior to IV Start Stop: 09/07/16 18:00 Sodium Chloride (Saline Flush) 10 ml FLUSH ASDIRECTED PRN PRN Reason: Keep Vein Open Stop: 09/07/16 18:00 Discontinued Medications Cefazolin Sodium (Ancef) Confirm Administered Dose 2 gm .ROUTE .STK-MED ONE Stop: 09/07/16 07:27 Fentanyl (Sublimaze) Confirm Administered Dose 250 mcg .ROUTE .STK-MED ONE Stop: 09/07/16 07:16 Lidocaine HCl (Xylocaine-Mpf 1%) Confirm Administered Dose 4 mls @ as directed .ROUTE .STK-MED ONE Stop: 09/07/16 07:15 Midazolam HCl (Versed 1 Mg/Ml) Confirm Administered Dose 2 mg .ROUTE .STK-MED ONE Stop: 09/07/16 07:16 Ondansetron HCl (Zofran) Confirm Administered Dose 4 mg .ROUTE .STK-MED ONE Stop: 09/07/16 07:15 Propofol (Diprivan 20 Ml) Confirm Administered Dose 200 mg .ROUTE .STK-MED ONE Stop: 09/07/16 07:15
[2016-09-07] MEDS ORDERED: Ondansetron 4 MG/2 ML SDV IVPUSH PRN ×2 (08:44→09:02)
[2016-09-07] MEDS ORDERED: fentaNYL 100 MCG/2 ML SDV IVPUSH PRN (08:44)
[2016-09-07] MEDS ORDERED: Ketorolac 30 MG/ML SDV ONE (08:54)
[2016-09-07] MEDS ORDERED: Dexamethasone 4 MG/ML SDV ONE (08:54)
[2016-09-07] MEDS ORDERED: Acetaminophen/HYDROcodone 325-5 MG Tab PO PRN (09:02)
[2016-09-07] MEDS ORDERED: ePHEDrine/Normal Saline 25 MG/5 ML Syringe ONE (09:02)
--- NOTE | 2016-09-07 09:08 | PCM.OPNOTE ---
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 Cervical cone biopsy-suture at 12 o'clock position 2. Endocervical curettings from above cone site. Fluid Replacement, Intraop: 800 EBL in mLs: 10 Complications: None Condition: Good Free Text/Narrative:: Surgeon duration: 14 minutes Palpitations: None Procedure: The patient is taken to the operating room and placed in supine position on the operating table. She was administered Ancef 2 g IV preop for infection prophylaxis and had sequential compression stockings in place for DVT prophylaxis. General LMA anesthesia was administered. After anesthesia patient was placed in a dorsal lithotomy position and prepped externally for this procedure. Internal prep was done with Lugol solution. A weighted speculum was placed in the vagina. The cervix was visualized and a stay suture was placed at the 3:00 and 9 o'clock position using #1 Vicryl suture. The Lugol solution was applied and the ectocervix appeared entirely normal. The cervix was infiltrated with lidocaine quarter percent with epinephrine-10 mL total. Cold knife cone biopsy was then performed. The specimen was tagged at 12 o'clock position with a piece of suture. Endocervical curettage was done above the cone site and sent as specimen #2. The base the cone was then cauterized. Hemostasis was confirmed at the end of procedure. The stay suture tails were cut and the speculum was removed. Sponge instrument needle counts are correct at the end of the procedure. She was returned to supine position and awakened from general anesthesia. She tolerated the procedure well left the operating room in good condition.
[2016-09-07] MEDS ORDERED: Acetaminophen/oxyCODONE 325-5 MG Tab PO ONE (09:21)
--- NOTE | 2016-09-07 09:21 | PCM.POSTAN ---
POST ANESTHESIA ASSESSMENT - MENTAL STATUS Mental Status: alert, oriented - VITAL SIGNS Pulse Rate: 100 SaO2: 100 Resp Rate: 14 Blood Pressure: 125/70 Temperature: 99.5 F - RESPIRATORY Respiratory Status: respiratory rate WNL, airway patent, O2 saturation stable, supplemental oxygen - CARDIOVASCULAR CV Status: pulse rate WNL, blood pressure stable - GASTROINTESTINAL GI Status: no symptoms - PAIN Pain Score: 4 (burning discomfort- medicated with fent) - POST OP HYDRATION Hydration Status: adequate & stable
[2016-09-07] MEDS ORDERED: Lactated Ringers 1,000 ML ONE (09:36)
[2016-09-07 10:51] VITALS: BP 117/76
== END 2016-09-07 10:35 | disposition home or self-care (01) ==
LOC: JD.SDS 07:53
PROVIDERS: ATTEND Obstetrics & Gynecology
PROC: 0UBC7ZX Excision of Cervix, Via Natural or Artificial Opening, Diagnostic (ICD-10-PCS; principal; 2016-09-07)
DX: N72 Inflammatory disease of cervix uteri (principal); N87.9 Dysplasia of cervix uteri, unspecified; Z91.030 Bee allergy status; Z98.890 Other specified postprocedural states; Z87.891 Personal history of nicotine dependence; Z87.442 Personal history of urinary calculi
CPT/HCPCS: 36415; 57520; 81003; 81025; 85025; 88305; 88307; J0690; J1100; J1885; J2250; J2405; J3010; J7050; J7120; 00940; J2704

== ENCOUNTER 2018-05-19 05:24 | Emergency (ER) | payer BC, OTHER ==
--- NOTE | 2018-05-19 05:33 | EDM.PDOC ---
ED HPI GENERAL MEDICAL PROBLEM - General Chief Complaint: Respiratory Problem Stated Complaint: POSSIBLE SINIUS INFECTION PAIN AND FEVER Time Seen by Provider: 05/19/18 05:33 - History of Present Illness INITIAL COMMENTS - FREE TEXT/NARRATIVE: 28-year-old female presents emergency room with sinus pressure and congestion. This started on Saturday. She's had fevers 3 lots of sinus pressure it does not seem to favor one side or the other she had ear pain initially but this seems to resolve she's got a fair amount of nasal congestion. She's got a mild cough significant body aches all over. She does not have any nausea vomiting diarrhea. Her past medical history is unremarkable. She has tried Tylenol Aleve Motrin with no success. 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 Musculoskeletal History: Reports: None Neurological History: Reports: None Psychiatric History: Reports: None Endocrine/Metabolic History: Reports: None Hematologic History: Reports: None Immunologic History: Reports: None Oncologic (Cancer) History: Reports: None Dermatologic History: Reports: 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) Other Dermatologic History: acne,vesicular rash - Past Surgical History Head Surgeries/Procedures: Reports: None HEENT Surgical History: Reports: LASIK, Oral Surgery, 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) Other HEENT Surgeries/Procedures: 2009 Respiratory Surgical History: Reports: None Female Surgical History: Reports: Ureteral Stent Social & Family History - Family History Family Medical History: Noncontributory - Caffeine Use Caffeine Use: Reports: Coffee ED ROS GENERAL - Review of Systems Review Of Systems: See Below Constitutional: Reports: Fever, Chills HEENT: Reports: Ear Pain, Sinus Problem Respiratory: Reports: Cough. Denies: Shortness of Breath, Wheezing, Pleuritic Chest Pain, Sputum Cardiovascular: Reports: No Symptoms GI/Abdominal: Reports: No Symptoms : Reports: No Symptoms Musculoskeletal: Reports: Other (Achy all over) Skin: Reports: No Symptoms Neurological: Reports: No Symptoms Psychiatric: Reports: No Symptoms ED EXAM, GENERAL - Physical Exam Exam: See Below Exam Limited By: No Limitations General Appearance: Alert, No Apparent Distress Eye Exam: Bilateral Eye: EOMI, Normal Inspection, PERRL Ears: Normal External Exam, Normal Canal, Hearing Grossly Normal, Normal TMs, Other (Fair amount of cerumen in both canals) Nose: Normal Inspection, Normal Mucosa, No Blood, Other (Maxillary sinuses are both tender with percussion frontal sinuses normal) Throat/Mouth: Normal Inspection, Normal Lips, Normal Teeth, Normal Gums, Normal Oropharynx, Normal Voice, No Airway Compromise Head: Atraumatic, Normocephalic Neck: Normal Inspection, Supple, Non-Tender, Full Range of Motion Respiratory/Chest: Lungs Clear, Normal Breath Sounds, No Accessory Muscle Use Cardiovascular: Normal Peripheral Pulses, Regular Rate, Rhythm, No Edema, No Gallop GI/Abdominal: Normal Bowel Sounds, Soft, Non-Tender Skin Exam: Warm, Dry, Intact Course - Vital Signs Last Recorded V/S: Last Vital Signs Temp 38.7 C H 05/19/18 05:31 Pulse 87 05/19/18 05:31 Resp 16 05/19/18 05:31 BP 113/87 05/19/18 05:31 Pulse Ox 98 05/19/18 05:31 - Orders/Labs/Meds Orders: Active Orders 24 hr Category Date Time Status INFLUENZA A+B AG SCREEN [RM] Stat Lab 05/19/18 05:46 Received - Re-Assessments/Exams Free Text/Narrative Re-Assessment/Exam: 05/19/18 06:37 Influenza A is positive we'll treat accordingly Departure - Departure Time of Disposition: 06:38 Disposition: Home, Self-Care 01 Clinical Impression: Influenza A - Discharge Information Prescriptions: Oseltamivir [Tamiflu] 75 mg PO BID #10 cap Referrals: PCP,None [Primary Care Provider] - Forms: ED Department Discharge Additional Instructions: Return to emergency room if any questions problems worsening symptoms. Take the Tamiflu as directed one twice daily for 5 days. Tylenol or Motrin for aches and pains and fevers. - My Orders Last 24 Hours: My Active Orders 05/19/18 05:46 INFLUENZA A+B AG SCREEN [RM] Stat - Assessment/Plan Last 24 Hours: My Active Orders 05/19/18 05:46 INFLUENZA A+B AG SCREEN [RM] Stat
[2018-05-19 05:34] VITALS: BP 113/87
== END 2018-05-19 06:47 | disposition home or self-care (01) ==
LOC: JD.ED 05:24
DX: J10.1 Influenza due to other identified influenza virus with other respiratory manifestations (principal); Z91.030 Bee allergy status
CPT/HCPCS: 87804; 99283

== ENCOUNTER 2018-11-04 06:30 | Day surgery (SDC) | payer SELFPAY ==
[~2018-11-04 06:30] MED LIST changes: -Lactated Ringers 1,000 ML IV SCH; -Lidocaine 1% 4 ML ONE; +Lidocaine 1%/Sod Bicarbonate in NS 8.4% 1 ML Syringe IDERM PRN; -Lidocaine 1%/Sod Bicarbonate in NS 8.4% 1 ML Syringe PRN; -Midazolam 1 MG/ML 2 ML SDV ONE; -Ondansetron 4 MG/2 ML SDV ONE; -Propofol 200 MG/20 ML SDV ONE; -ceFAZolin 1 GM Vial ONE; -fentaNYL 250 MCG/5 ML SDV ONE
[2018-11-04] MEDS ORDERED: ceFAZolin 1 GM Vial ONE (07:00)
[2018-11-04] MEDS ORDERED: Lactated Ringers 1,000 ML ONE (07:00)
[2018-11-04] MEDS ORDERED: fentaNYL 250 MCG/5 ML SDV ONE (07:00)
[2018-11-04] MEDS ORDERED: Rocuronium 50 MG/5 ML Vial ONE (07:00)
[2018-11-04] MEDS ORDERED: Propofol 200 MG/20 ML SDV ONE (07:00)
[2018-11-04] MEDS ORDERED: Ketorolac 30 MG/ML SDV ONE (07:00)
[2018-11-04] MEDS ORDERED: Ondansetron 4 MG/2 ML SDV ONE (07:00)
[2018-11-04] MEDS ORDERED: Dexamethasone 4 MG/ML 5 ML MDV ONE (07:00)
[2018-11-04] MEDS ORDERED: Midazolam 1 MG/ML 2 ML SDV ONE (07:00)
[2018-11-04] MEDS: Lactated Ringers 1,000 ML IV SCH ×2 (07:12→12:45)
[2018-11-04] MEDS ORDERED: Lidocaine 1% with EPINEPHrine 1:100,000 20 ML MDV ONE (07:22)
--- NOTE | 2018-11-04 07:22 | PCM.PREANE ---
Preanesthetic Assessment - Anesthesia/Transfusion/Family Hx Anesthesia History: Prior Anesthesia Without Reaction Family History of Anesthesia Reaction: No Transfusion History: No Prior Transfusion(s) - Review of Systems General: No Symptoms, Other (hx of HPV) Pulmonary: No Symptoms, Other (hx of smoking, vapes on occasion) Cardiovascular: No Symptoms Gastrointestinal: No Symptoms Neurological: No Symptoms - Physical Assessment NPO Status Date: 11/03/18 NPO Status Time: 20:30 Weight: 48.2 kg ASA Class: 1 Mental Status: Alert & Oriented x3 Airway Class: Mallampati = 2 Dentition: Reports: Normal Dentition Thyro-Mental Finger Breadths: 3 Mouth Opening Finger Breadths: 3 ROM/Head Extension: Full Lungs: Clear to Auscultation, Normal Respiratory Effort Cardiovascular: Regular Rate, Regular Rhythm - Lab Values: Laboratory Last Values WBC 4.98 K/mm3 (3.98-10.04) 10/30/18 08:15 RBC 4.82 M/mm3 (3.98-5.22) 10/30/18 08:15 Hgb 14.3 gm/L (11.2-15.7) 10/30/18 08:15 Hct 43.9 % (34.1-44.9) 10/30/18 08:15 MCV 91.1 fl (79.4-94.8) D 10/30/18 08:15 MCH 29.7 pg (25.6-32.2) 10/30/18 08:15 MCHC 32.6 g/dl (32.2-35.5) 10/30/18 08:15 RDW Std Deviation 43.4 fL (36.4-46.3) 10/30/18 08:15 Plt Count 330 K/mm3 (182-369) 10/30/18 08:15 MPV 9.0 fl (9.4-12.3) L 10/30/18 08:15 Neut % (Auto) 42.8 % (34.0-71.1) 10/30/18 08:15 Lymph % (Auto) 45.8 % (19.3-51.7) 10/30/18 08:15 [place] % (Auto) 8.8 % (4.7-12.5) 10/30/18 08:15 Eos % (Auto) 1.8 (0.7-5.8) 10/30/18 08:15 Baso % (Auto) 0.8 % (0.1-1.2) 10/30/18 08:15 Neut # (Auto) 2.13 K/mm3 (1.56-6.13) 10/30/18 08:15 Lymph # (Auto) 2.28 K/mm3 (1.18-3.74) 10/30/18 08:15 [place] # (Auto) 0.44 K/mm3 (0.24-0.36) H 10/30/18 08:15 Eos # (Auto) 0.09 K/mm3 (0.04-0.36) 10/30/18 08:15 Baso # (Auto) 0.04 K/mm3 (0.01-0.08) 10/30/18 08:15 Creatinine 0.9 mg/dL (0.55-1.02) 10/30/18 08:15 Est Cr Clr Drug Dosing TNP 10/30/18 08:15 Estimated GFR (MDRD) > 60 mL/min (>60) 10/30/18 08:15 Urine Color Yellow (Yellow) 10/30/18 08:15 Urine Appearance Slt cloudy (Clear) H 10/30/18 08:15 Urine pH 6.0 (5.0-8.0) 10/30/18 08:15 Ur Specific [place] > or = 1.030 (1.005-1.030) 10/30/18 08:15 Urine Protein Negative (Negative) 10/30/18 08:15 Urine Glucose (UA) Negative (Negative) 10/30/18 08:15 Urine Ketones Negative (Negative) 10/30/18 08:15 Urine Occult Blood 3+ (Negative) H 10/30/18 08:15 Urine Nitrite Negative (Negative) 10/30/18 08:15 Urine Bilirubin Negative (Negative) 10/30/18 08:15 Urine Urobilinogen 0.2 (0.2-1.0) 10/30/18 08:15 Ur Leukocyte Esterase Negative (Negative) 10/30/18 08:15 Urine RBC 30-40 /hpf (0-5) H 10/30/18 08:15 Urine WBC 0-5 /hpf (0-5) 10/30/18 08:15 Ur Squamous Epith Cells 0-5 /hpf (0-5) 10/30/18 08:15 Urine Bacteria Few /hpf (FEW) 10/30/18 08:15 Urine Mucus Not seen /hpf (FEW) 10/30/18 08:15 Urine HCG, Qual Negative (NEGATIVE) 11/04/18 06:56 Blood Type A POSITIVE 10/30/18 08:15 Gel Antibody Screen Negative 10/30/18 08:15 - Allergies Allergies/Adverse Reactions: Allergies Allergy/AdvReac Type Severity Reaction Status Date / Time venom-honey bee Allergy Airway Verified 11/03/18 11:33 [bee venom (honey bee)] Tightness - Blood Blood Available: No Product(s) Available: None - Anesthesia Plan Pre-Op Medication Ordered: None - Acknowledgements Anesthesia Type Planned: General Anesthesia Pt an Appropriate Candidate for the Planned Anesthesia: Yes Alternatives and Risks of Anesthesia Discussed w Pt/Guardian: Yes Pt/Guardian Understands and Agrees with Anesthesia Plan: Yes PreAnesthesia Questionnaire Cardiovascular History: Reports: None Respiratory History: Reports: None Gastrointestinal History: Reports: Hemorrhoids Genitourinary History: Reports: Renal Calculus 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: , 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) Other OB/BYN History: irregular menses, menorrhagia, , HPV, CINI, cervical conizaiton Musculoskeletal History: Reports: None Neurological History: Reports: None Psychiatric History: Reports: None Endocrine/Metabolic History: Reports: None Hematologic History: Reports: None Immunologic History: Reports: None Oncologic (Cancer) History: Reports: None Dermatologic History: Reports: 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) Other Dermatologic History: acne,vesicular rash - Past Surgical History Head Surgeries/Procedures: Reports: None HEENT Surgical History: Reports: LASIK, Oral Surgery, 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) Other HEENT Surgeries/Procedures: 2009 Cardiovascular Surgical History: Reports: None Respiratory Surgical History: Reports: None GI Surgical History: Reports: None Female Surgical History: Reports: Ureteral Stent Endocrine Surgical History: Reports: None Neurological Surgical History: Reports: None Musculoskeletal Surgical History: Reports: None Oncologic Surgical History: Reports: None - SUBSTANCE USE Smoking Status *Q: Current Some Day Smoker Tobacco Use Within Last Twelve Months: 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) Other Tobacco Use Within Last Twelve Months: vapes occassionally Recreational Drug Use History: No - HOME MEDS Home Medications: Home Meds . [No Known Home Meds] 11/03/18 [History] - CURRENT (IN HOUSE) MEDS Current Meds: Current Medications Lactated Ringer's (Ringers, Lactated) 1,000 mls @ 125 mls/hr IV ASDIRECTED EMILY Stop: 11/04/18 23:00 Lidocaine/Sodium Bicarbonate (Buffered Lidocaine 1% In Ns 8.4%) 0.25 ml IDERM ONETIME PRN PRN Reason: Prior to IV Start Stop: 11/04/18 18:00 Sodium Chloride (Saline Flush) 10 ml FLUSH ASDIRECTED PRN PRN Reason: Keep Vein Open Stop: 11/04/18 18:00 Discontinued Medications Cefazolin Sodium (Ancef) Confirm Administered Dose 2 gm .ROUTE .STK-MED ONE Stop: 11/04/18 07:01 Dexamethasone (Dexamethasone) Confirm Administered Dose 20 mg .ROUTE .STK-MED ONE Stop: 11/04/18 07:01 Fentanyl (Sublimaze) Confirm Administered Dose 250 mcg .ROUTE .STK-MED ONE Stop: 11/04/18 07:01 Lactated Ringer's (Ringers, Lactated) Confirm Administered Dose 1,000 mls @ as directed .ROUTE .STK-MED ONE Stop: 11/04/18 07:01 Ketorolac Tromethamine (Toradol) Confirm Administered Dose 30 mg .ROUTE .STK- MED ONE Stop: 11/04/18 07:01 Midazolam HCl (Versed 1 Mg/Ml) Confirm Administered Dose 2 mg .ROUTE .STK-MED ONE Stop: 11/04/18 07:01 Ondansetron HCl (Zofran) Confirm Administered Dose 4 mg .ROUTE .STK-MED ONE Stop: 11/04/18 07:01 Propofol (Diprivan 20 Ml) Confirm Administered Dose 200 mg .ROUTE .STK-MED ONE Stop: 11/04/18 07:01 Rocuronium [place] (Zemuron) Confirm Administered Dose 50 mg .ROUTE .STK-MED ONE Stop: 11/04/18 07:01
[2018-11-04] MEDS ORDERED: Sodium Chloride 0.9% 0 ML ONE (07:23)
[2018-11-04] MEDS ORDERED: Sodium Chloride 0.9% 50 ML SDV ONE (07:26)
[2018-11-04] MEDS ORDERED: HYDROmorphone 0.5 MG/0.5 ML Syringe ONE ×2 (07:55→08:11)
[2018-11-04] MEDS ORDERED: Ondansetron 4 MG/2 ML SDV IVPUSH PRN ×2 (08:29→08:46)
[2018-11-04] MEDS ORDERED: Acetaminophen/oxyCODONE 325-5 MG Tab PO PRN (08:29)
[2018-11-04] MEDS ORDERED: Ketorolac 30 MG/ML SDV IVPUSH SCH (08:30)
--- NOTE | 2018-11-04 08:34 | PCM.OPNOTE ---
- General Post-Op/Procedure Note Date of Surgery/Procedure: 11/04/18 Operative Procedure(s): Total vaginal hysterectomy with bilateral salpingectomy Findings: Uterus tubes and ovaries appeared to be within normal limits. Adequate relaxation was noted. Pre Op Diagnosis: 1. Irregular uterine bleeding. 2. Menorrhagia Post-Op Diagnosis: Same Anesthesia Technique: General ET Tube Other Anesthesia Type: Lidocaine quarter percent with mL local Primary Surgeon: Tom Nathan Secondary Surgeon: Remy Soto Anesthesia Provider: Sera Blount Microfiche Camera Operator: Lia Shipley Reason Microfiche Camera Operator Was Necessary: Retraction, assistance, patient safety, quality of care EBL in mLs: 25 Complications: None Condition: Good Free Text/Narrative:: Surgery duration: 25 minutes Procedure: Patient was appropriately consented for the procedure. The patient was placed in supine position on the operating table. General endotracheal anesthesia was accomplished. She received 2 g of Ancef preoperatively for infection prophylaxis. After positioning, and adequate prep and drape, the procedure was then performed. Sterile speculum was placed in the vagina and cervix was visualized. Cervix was injected with lidocaine quarter percent with epinephrine-20 mL used. A full circumference incision was made in the cervical epithelium. The bladder was pushed well back off cervix. Posterior cul-de-sac was then entered sharply without problems. Left uterosacral was crossclamped with a Enseal vessel closure system. The left uterosacral and then the right uterosacral ligament pedicles were developed using the Enseal system. The anterior cul-de-sac was then entered without problems and the uterine vasculature, cardinal ligament and broad ligament then developed using Enseal vessel closure system. The uterus was inverted at this time and upper broad ligament fallopian tube pedicles were crossclamped with Zachary clamps. Specimen was totally removed. Both these pedicles were then secured with the Enseal vessel closure system. Left and right fallopian tube was normal in appearance.. Using Enseal vessel closure system each of the tubes was then removed and sent with the specimen. The patient was found to be hemostatically intact at this time. Vaginal cuff was sutured for hemostatic reasons with a running locked suture of 0 Monocryl from the 2 o'clock position to the 10 o'clock position posteriorly. Vaginal cuff was then closed from right to left side with a running locked suture of 0 Monocryl. Patient was returned to supine position and awakened from general endotracheal anesthesia. She tolerated the procedure and left the operating room in satisfactory condition.
[2018-11-04] MEDS ORDERED: fentaNYL 100 MCG/2 ML SDV IVPUSH PRN (08:46)
[2018-11-04] MEDS ORDERED: HYDROmorphone 0.5 MG/0.5 ML Syringe IVPUSH PRN (08:46)
[2018-11-04] MEDS ORDERED: diphenhydrAMINE 50 MG/ML SDV IVPUSH PRN (08:46)
--- NOTE | 2018-11-04 08:46 | PCM.POSTAN ---
POST ANESTHESIA ASSESSMENT - MENTAL STATUS Mental Status: Alert, Oriented - VITAL SIGNS Vital Signs: Last Vital Signs Temp 36.5 C 11/04/18 07:05 Pulse 74 11/04/18 07:05 Resp 16 11/04/18 07:05 BP 113/79 11/04/18 07:05 Pulse Ox 100 11/04/18 07:05 - RESPIRATORY Respiratory Status: Respiratory Rate WNL, Airway Patent, O2 Saturation Stable, Supplemental Oxygen - CARDIOVASCULAR CV Status: Pulse Rate WNL, Blood Pressure Stable - GASTROINTESTINAL GI Status: No Symptoms - PAIN Pain Score: 0 - POST OP HYDRATION Hydration Status: Adequate & Stable
--- NOTE | 2018-11-04 09:41 | PCM48HPAN ---
Post Anesthesia Note - EVALUATION WITHIN 48HRS OF ANESTHETIC Vital Signs in Normal Range: Yes Patient Participated in Evaluation: Yes Respiratory Function Stable: Yes Airway Patent: Yes Cardiovascular Function Stable: Yes Hydration Status Stable: Yes Pain Control Satisfactory: Yes Nausea and Vomiting Control Satisfactory: Yes Mental Status Recovered: Yes Vital Signs: Last Vital Signs Temp 36.9 C 11/04/18 08:42 Pulse 74 11/04/18 07:05 Resp 14 11/04/18 09:15 BP 123/76 11/04/18 09:15 Pulse Ox 100 11/04/18 09:15
[2018-11-04] MEDS ORDERED: Neostigmine Methylsulfate 1 MG/ML 5 ML Syringe ONE (11:59)
[2018-11-04 14:35] VITALS: BP 117/85
== END 2018-11-04 14:10 | disposition home or self-care (01) ==
LOC: JD.SDS 06:30
PROVIDERS: ATTEND Obstetrics & Gynecology
DX: N92.1 Excessive and frequent menstruation with irregular cycle (principal); N72 Inflammatory disease of cervix uteri; F17.290 Nicotine dependence, other tobacco product, uncomplicated; L63.9 Alopecia areata, unspecified; Z91.030 Bee allergy status; Z79.899 Other long term (current) drug therapy
CPT/HCPCS: 36415; 58262; 81001; 81025; 82565; 85025; 86850; 86900; 86901; A9270; J0690; J1100; J1170; J1885; J2250; J2405; J2704; J2710; J3010; J7120

== ENCOUNTER 2020-09-17 08:55 | Emergency (ER) | payer SELFPAY ==
[2020-09-17 09:11] VITALS: BP 122/85; PULSE 78
--- NOTE | 2020-09-17 10:33 | US ---
Pelvic ultrasound: Multiple real-time images were obtained transabdominally. Comparison: No prior pelvic imaging is available. Uterus not seen compatible with prior hysterectomy. Small cyst is noted within the right ovary measuring 2.8 x 2.2 x 1.7 cm. Ovaries are otherwise unremarkable. There is some free fluid being seen within the right adnexa. Impression: 1. Small cyst within the right ovary with a small amount of adjacent free fluid. Findings suggest leakage of the small cyst. 2. Uterus not visualized. 3. No additional abnormality is seen. Diagnostic code #3
--- NOTE | 2020-09-17 11:43 | EDM.PDOC ---
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 Pelvic pain was quite severe initially, now moderately better. Still having some pain bilat low pelvis. Hx of early cervical cancer 2 yrs ago, had hysterectomy at that time. Still has both ovaries. 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 History: irregular menses, menorrhagia, , HPV, CINI, cervical conizaiton Musculoskeletal History: Reports: None Neurological History: Reports: None Psychiatric History: Reports: None Endocrine/Metabolic History: Reports: None Hematologic History: Reports: None Immunologic History: Reports: None Oncologic (Cancer) History: Reports: None Dermatologic History: Reports: 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) Other Dermatologic History: acne,vesicular rash - Past Surgical History HEENT Surgical History: Reports: LASIK, Oral Surgery Female Surgical History: Reports: Hysterectomy, Ureteral Stent, 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) Other Female Surgeries/Procedures: Cone Biopsy Social & Family History - Family History Family Medical History: No Pertinent Family History - Caffeine Use Caffeine Use: Reports: Coffee - Recreational Drug Use Recreational Drug Use: No ED ROS GENERAL - Review of Systems Review Of Systems: See Below HEENT: Reports: No Symptoms Cardiovascular: Denies: Chest Pain GI/Abdominal: Reports: Abdominal Pain (lower mid pelvic). Denies: Nausea, Vomiting Musculoskeletal: Denies: Back Pain Skin: Reports: No Symptoms Neurological: Reports: No Symptoms ED EXAM, RENAL/ - Physical Exam Exam: See Below General Appearance: Alert, No Apparent Distress Throat/Mouth: Normal Inspection Respiratory/Chest: No Respiratory Distress, Lungs Clear, Normal Breath Sounds Cardiovascular: Regular Rate, Rhythm GI/Abdominal: Soft, Tender (mild tenderness lower mid pelvis) Extremities: Normal Inspection. No: Pedal Edema, Leg Pain Neurological: Alert, Oriented, No Motor/Sensory Deficits Course - Vital Signs Last Recorded V/S: Last Vital Signs Temp 97.4 F 09/17/20 09:08 Pulse 78 09/17/20 09:08 Resp 16 09/17/20 09:08 BP 122/85 09/17/20 09:08 Pulse Ox 100 09/17/20 09:08 - Re-Assessments/Exams Free Text/Narrative Re-Assessment/Exam: 09/17/20 13:38 pelvic US does show a relatively small R ovarian cyst with some surrounding fluid, see Radiology report for details. Discharge instr. as documented. Departure - Departure Time of Disposition: 11:41 Disposition: Home, Self-Care 01 Condition: Fair Clinical Impression: Ovarian cyst Qualifiers: Laterality: right Qualified Code(s): N83.201 - Unspecified ovarian cyst, right side - Discharge Information Instructions: Ovarian Cyst, [id number] Referrals: Tom Nathan MD [Primary Care Provider] - Forms: ED Department Discharge Additional Instructions: Your pelvic US does show R ovarian cyst with some fluid around it suggesting there has been some leakage of fluid as discussed. Body rest and pelvic rest to give this time to heal. Tylenol up to 3 times daily. You may take ibuprofen or aleve in between doses of tylenol if needed for further pain relief. See Dr Nathan as needed. Return to ED as needed if symptoms worsening in any way. Sepsis Event Note (ED) - Evaluation Sepsis Screening Result: No Definite Risk - Focused Exam Vital Signs: Vital Signs Temp Pulse Resp BP Pulse Ox 09/17/20 09:08 97.4 F 78 16 122/85 100
== END 2020-09-17 12:00 | disposition home or self-care (01) ==
LOC: JD.ED 08:55
DX: N83.201 Unspecified ovarian cyst, right side (principal); Z91.030 Bee allergy status
CPT/HCPCS: 76857; 76857-26; 99283; 99284-25

== ENCOUNTER 2022-06-05 05:48 | Emergency (ER) | payer SELFPAY ==
[2022-06-05 05:58] VITALS: BP 123/86; PULSE 111
[2022-06-05] MEDS ORDERED: Sodium Chloride 0.9% 10 ML Syringe FLUSH PRN (06:07)
[2022-06-05] MEDS ORDERED: Ketorolac 30 MG/ML SDV IVPUSH ONE (06:08)
[2022-06-05] MEDS ORDERED: methylPREDNISolone Sodium Succinate 125 MG/2 ML SDV IVPUSH ONE (06:08)
[2022-06-05] MEDS ORDERED: Sodium Chloride 0.9% 1,000 ML IV SCH (06:15)
[2022-06-05 08:22] LABS: CORONAVIRUS COVID-19 NAA POSITIVE (NEGATIVE)
[2022-06-05] MEDS ORDERED: Penicillin G Benzathine 1,200,000 Units/2 ML Syringe IM ONE (08:23)
== END 2022-06-05 08:55 | disposition home or self-care (01) ==
LOC: JD.ED 05:48
DX: U07.1 COVID-19 (principal); J03.00 Acute streptococcal tonsillitis, unspecified; Z86.16 Personal history of COVID-19; Z72.0 Tobacco use; Z91.030 Bee allergy status; Z20.822 Contact with and (suspected) exposure to COVID-19
CPT/HCPCS: 0241U; 36415; 80053; 85025; 86140; 86308; 87651; 96361; 96372; 96374; 96375; 99284; J0561; J1885; J2930; J3490; J7030

== ENCOUNTER 2024-01-22 11:07 | Emergency (ER) | payer SELFPAY ==
[2024-01-22] MEDS: diphenhydrAMINE 50 MG/ML SDV IVPUSH ONE (11:31)
[2024-01-22] MEDS: methylPREDNISolone Sodium Succinate 125 MG/2 ML SDV IVPUSH ONE (11:32)
[2024-01-22] MEDS: Famotidine 20 MG/2 ML SDV IVPUSH ONE (11:32)
[2024-01-22 13:18] VITALS: BP 101/69; PULSE 78
== END 2024-01-22 13:03 | disposition home or self-care (01) ==
LOC: JD.ED 11:07
DX: T78.40XA Allergy, unspecified, initial encounter (principal); Z86.16 Personal history of COVID-19; Z90.710 Acquired absence of both cervix and uterus; F17.210 Nicotine dependence, cigarettes, uncomplicated; Z91.030 Bee allergy status
CPT/HCPCS: 96374; 96375; 99283; J1200; J2919; J3490

== ENCOUNTER 2024-03-01 16:49 | Emergency (ER) | payer SELFPAY ==
[2024-03-01 17:23] LABS: BASOPHILS ABSOLUTE AUTO 0.1 K/mm3 (0.0-0.2); BASOPHILS PERCENT AUTO 1.1 % (0.0-1.0); EOSINOPHILS ABSOLUTE AUTO 0.1 K/mm3 (0.0-0.4); EOSINOPHILS PERCENT AUTO 1.9 % (0.0-6.0); HEMATOCRIT 41.7 % (37.0-47.0); HEMOGLOBIN 13.5 gm/dl (12.0-16.0); IMMATURE GRAN ABSOLUTE AUTO 0.01 K/mm3 (0.00-0.05); IMMATURE GRAN PERCENT AUTO 0.2 % (0.0-0.4); LYMPHOCYTES ABSOLUTE AUTO 3.1 K/mm3 (1.0-4.8); LYMPHOCYTES PERCENT AUTO 48.6 % (24.0-44.0); MEAN CORPUSCULAR HEMOGLOBIN 30.6 pg (28.0-32.0); MEAN CORPUSCULAR HGB CONC 32.4 g/dl (32.0-36.0); MEAN CORPUSCULAR VOLUME 94.6 fl (83.0-99.0); MEAN PLATELET VOLUME 9.2 fl (9.4-12.3); MONOCYTES ABSOLUTE AUTO 0.5 K/mm3 (0.0-0.8); MONOCYTES PERCENT AUTO 8.4 % (0.0-8.0); NEUTROPHILS ABSOLUTE AUTO 2.5 K/mm3 (1.8-7.7); NEUTROPHILS PERCENT AUTO 39.8 % (41.0-71.0); PLATELET COUNT,PLT 272 K/mm3 (150-400); RED BLOOD CELL COUNT 4.41 M/mm3 (4.10-5.30); WHITE BLOOD CELL COUNT,WBC 6.34 K/mm3 (3.9-11.3)
[2024-03-01 17:31] LABS: INR 1.04
[2024-03-01 17:33] LABS: PTT,PARTIAL THROMBOPLSTIN TIME 25.2 SECONDS (21.7-31.4)
[2024-03-01 17:38] LABS: D-DIMER QUANTITATIVE < 0.19 mg/L (0.19-0.50)
[2024-03-01] MEDS: Ketorolac 30 MG/ML SDV IVPUSH ONE (17:39)
[2024-03-01 17:40] LABS: ANION GAP 8.6 (5-15); BLOOD UREA NITROGEN,BUN 14 mg/dL (7-18); BUN/CREATININE RATIO 17.5 (14-18); CARBON DIOXIDE,CO2 29 mEq/L (21-32); CHLORIDE,CL 103 mEq/L (98-107); CREATININE 0.8 mg/dL (0.55-1.02); GLUCOSE RANDOM 96 mg/dL (70-99); POTASSIUM,K 3.6 mEq/L (3.5-5.1); SODIUM,NA 137 mEq/L (136-145)
[2024-03-01 17:41] LABS: A/G RATIO 1.2 (1-2); ALANINE AMINOTRANSFERASE,ALT 16 U/L (14-59); ALBUMIN 3.8 g/dl (3.4-5.0); ALKALINE PHOSPHATASE 59 U/L (46-116); ASPARTATE AMNIOTRANSFERASE,AST 10 U/L (15-37); BILIRUBIN TOTAL 0.3 mg/dL (0.2-1.0); CALCIUM 8.6 mg/dL (8.5-10.1); ESTIMATED GFR 100 mL/min (>60); MAGNESIUM 2.1 mg/dL (1.8-2.4); PROTEIN TOTAL,TP 7.1 g/dl (6.4-8.2)
[2024-03-01 17:42] LABS: TROPONIN I HIGH SENSITIVITY < 4 pg/mL (<=51)
[2024-03-01 17:55] LABS: LACTIC ACID 0.7 mmol/L (0.4-2.0)
[2024-03-01] MEDS: Sodium Chloride 0.9% 1,000 ML IV SCH (18:16)
[2024-03-01 18:55] LABS: APPEARANCE,URINE CLEAR (Clear); BILIRUBIN,URINE NEGATIVE (Negative); COLOR,URINE LIGHT YELLOW (Yellow); GLUCOSE,URINE NEGATIVE (Negative); KETONES,URINE NEGATIVE (Negative); LEUKOCYTE ESTERASE,URINE NEGATIVE (Negative); NITRITE,URINE NEGATIVE (Negative); OCCULT BLOOD,URINE NEGATIVE (Negative); PROTEIN,URINE NEGATIVE (Negative); UROBILINOGEN,URINE 0.2 (0.2-1.0)
[2024-03-01 21:02] VITALS: BP 101/53; PULSE 76
== END 2024-03-01 20:52 | disposition home or self-care (01) ==
LOC: JD.ED 16:49
DX: R07.2 Precordial pain (principal); Z91.030 Bee allergy status; Z86.16 Personal history of COVID-19
CPT/HCPCS: 36415; 71045; 80053; 81003; 83605; 83735; 83880; 84484; 85025; 85379; 85610; 85730; 93005; 96361; 96374; 99285; J1885; J7030